=== PATIENT | female | born 1990 | race Hispanic/Latino ===

== ENCOUNTER 2017-09-17 11:16 | Observation (INO) | payer MEDICAID, OTHER | END 2017-09-17 13:58 | disposition home or self-care (01) | LOC: LDH 11:16 | PROVIDERS: ADMIT Obstetrics & Gynecology; ATTEND Obstetrics & Gynecology | DX: O26.893 Other specified pregnancy related conditions, third trimester (principal); R10.9 Unspecified abdominal pain; Z3A.37 37 weeks gestation of pregnancy | CPT/HCPCS: 76805; 76819; G0378 ×4 ==

== ENCOUNTER 2017-09-28 06:09 | Inpatient (IN) | payer MEDICAID ==
[~2017-09-28] VITALS: Ht 162.6 cm; Wt 108.9 kg
[2017-09-28 06:52] LABS: APPEARANCE,URINE TURBID (CLEAR); BILIRUBIN,URINE NEGATIVE (NEGATIVE); COLOR,URINE YELLOW (YELLOW); GLUCOSE, URINE (UA) NEGATIVE (NEGATIVE); KETONES,URINE NEGATIVE (NEGATIVE); LEUKOCYTE ESTERASE ,URINE NEGATIVE (NEGATIVE); NITRATE,URINE NEGATIVE (NEGATIVE); OCCULT BLOOD,URINE MODERATE (NEGATIVE); PROTEIN,URINE 100 (NEGATIVE); UROBILINOGEN,URINE 0.2 mg/dL (0.2-1.0)
[2017-09-28 06:57] LABS: BACTERIA,URINE Moderate /HPF (None Seen); SQUAMOUS EPITHELIAL CELL,UR Many /HPF (0-2)
[2017-09-28] MEDS ORDERED: AMPICILLIN 1GM+NS 50ML 50 ML IV SCH (07:15)
[2017-09-28] MEDS ORDERED: AMPICILLIN 2GM+NS 100ML 100 ML IV SCH ×2 (07:15→08:30)
[2017-09-28] MEDS ORDERED: AMPICILLIN 1 GM IV ONE (08:29)
[2017-09-28] MEDS ORDERED: [UNRECOGNIZED DRUG - OTHER] IV ONE (08:29)
[2017-09-28] MEDS ORDERED: BUTORPHANOL TARTRATE 2 MG/ML IVP PRN (09:15)
[2017-09-28] MEDS: LACTATED RINGERS 1000ML 1,000 ML IV PRN ×2 (09:32→16:31)
[2017-09-28 10:38] LABS: AMPHET/METH SCREEN,URINE NEGATIVE (NEGATIVE); BARBITURATE SCREEN, URINE NEGATIVE (NEGATIVE); BENZODIAZEPINES SCREEN,URINE NEGATIVE (NEGATIVE); CANNABINOID SCREEN,URINE NEGATIVE (NEGATIVE); COCAINE SCREEN,URINE NEGATIVE (NEGATIVE); OPIATE SCREEN,URINE NEGATIVE (NEGATIVE); PHENCYCLIDINE SCREEN,URINE NEGATIVE (NEGATIVE)
[2017-09-28] MEDS ORDERED: EPHEDRINE SULFATE 50 MG/ML AMPULE IVP PRN (11:45)
[2017-09-28] MEDS ORDERED: LACTATED RINGERS 500 ML 500 ML IV PRN (11:45)
[2017-09-28] MEDS ORDERED: NALOXONE HCL 0.4 MG/1 ML ML IV PRN (11:45)
[2017-09-28] MEDS ORDERED: OXYTOCIN 10 USP UNITS/ML 20 UNIT in LACTATED RINGERS 1000ML 1,000 ML IV SCH (11:45)
[2017-09-28] MEDS ORDERED: LACTATED RINGERS 1000ML 1,000 ML IV ONE ×2 (11:47→19:57)
[2017-09-28] MEDS ORDERED: OXYTOCIN 10 USP UNITS/ML ONE ×2 (11:47→19:57)
[2017-09-28 13:07] LABS: HEMATOCRIT 39.9 % (36-48); MEAN CORPUSCULAR HEMOGLOBIN 28.9 pg (27.0-33.0); MEAN CORPUSCULAR HGB CONC 33.9 g/dL (32.0-36.0); MEAN CORPUSCULAR VOLUME 85.2 fL (79-99); NUCLEATED RED BLOOD CELLS 0.1 % (0.0-0.19); PLATELET COUNT (AUTO) 224 K/uL (130-400); RED BLOOD CELL COUNT(AUTO) 4.69 MIL/uL (4.00-5.50); RED CELL DISTRIBUTION WIDTH 13.2 % (11.0-15.5); WHITE BLOOD COUNT (AUTO) 11.3 K/uL (4.8-10.8)
[2017-09-28] MEDS: AMPICILLIN 1GM+NS 50ML 50 ML IV SCH (16:31)
[2017-09-28] MEDS ORDERED: OXYTOCIN-LR 20 UNITS/1000 ML 1,000 ML IV SCH (19:30)
[2017-09-28] MEDS ORDERED: BENZOCAINE/LANOLIN/ALOE VERA 60 ML AEROSOL TP PRN (19:30)
[2017-09-28] MEDS ORDERED: LANOLIN 30GM OINTMENT TP PRN (19:30)
[2017-09-28] MEDS ORDERED: WITCH HAZEL 1 PAD TP PRN (19:30)
[2017-09-28] MEDS: IBUPROFEN 600 MG TABLET PO PRN (20:13)
[2017-09-28] MEDS: DOCUSATE SODIUM 100 MG CAP PO SCH (20:14)
[2017-09-28 21:47] VITALS: BP 148/82
[2017-09-28] MEDS: ACETAMINOPHEN 325 MG TAB PO PRN (23:22)
[2017-09-28 23:44] VITALS: BP 146/89
[2017-09-29] MEDS: AMPICILLIN 1GM+NS 50ML 50 ML IV SCH ×2 (00:30→04:30)
[2017-09-29 04:05] VITALS: BP 133/71
[2017-09-29 06:40] LABS: HEMATOCRIT 36.8 % (36-48); MEAN CORPUSCULAR HEMOGLOBIN 28.3 pg (27.0-33.0); MEAN CORPUSCULAR HGB CONC 33.6 g/dL (32.0-36.0); MEAN CORPUSCULAR VOLUME 84.5 fL (79-99); PLATELET COUNT (AUTO) 219 K/uL (130-400); RED BLOOD CELL COUNT(AUTO) 4.36 MIL/uL (4.00-5.50); RED CELL DISTRIBUTION WIDTH 13.2 % (11.0-15.5)
[2017-09-29 08:00] VITALS: BP 117/71
[2017-09-29] MEDS: DOCUSATE SODIUM 100 MG CAP PO SCH ×2 (08:09→20:45)
[2017-09-29] MEDS: IBUPROFEN 600 MG TABLET PO PRN ×3 (08:09→23:00)
[2017-09-29 11:55] VITALS: BP 140/87
[2017-09-29] MEDS: ACETAMINOPHEN 325 MG TAB PO PRN (13:07)
[2017-09-29 16:30] VITALS: BP 145/93
[2017-09-29 23:15] VITALS: BP 134/87
[2017-09-30 03:12] VITALS: BP 128/68
[2017-09-30 07:16] VITALS: BP 128/75
[2017-09-30] MEDS: IBUPROFEN 600 MG TABLET PO PRN ×2 (07:23→16:30)
[2017-09-30 08:25] LABS: HEPATITIS Bs ANTIGEN SCREEN P Negative (Negative)
[2017-09-30] MEDS: DOCUSATE SODIUM 100 MG CAP PO SCH (08:56)
[2017-09-30 11:13] VITALS: BP 136/86
[2017-09-30] MEDS: ACETAMINOPHEN 325 MG TAB PO PRN (11:28)
[2017-09-30 15:35] VITALS: BP 142/82
== END 2017-09-30 19:20 | disposition home or self-care (01) | DRG 560 ==
LOC: EDH 06:09 → LDH 06:10 → OBSVTOIN 06:10 → WSH 21:30
PROVIDERS: ADMIT Obstetrics & Gynecology; ATTEND Obstetrics & Gynecology
PROC: 10E0XZZ Delivery of Products of Conception, External Approach (ICD-10-PCS; principal; 2017-09-28)
PROC: 0UQGXZZ Repair Vagina, External Approach (ICD-10-PCS; 2017-09-28)
PROC: 30233S1 Transfusion of Nonautologous Globulin into Peripheral Vein, Percutaneous Approach (ICD-10-PCS; 2017-09-28)
PROC: 3E0R3BZ Introduction of Anesthetic Agent into Spinal Canal, Percutaneous Approach (ICD-10-PCS; 2017-09-28)
PROC: 00HU33Z Insertion of Infusion Device into Spinal Canal, Percutaneous Approach (ICD-10-PCS; 2017-09-28)
DX: O42.92 Full-term premature rupture of membranes, unspecified as to length of time between rupture and onset of labor (principal); Z68.41 Body mass index [BMI] 40.0-44.9, adult; O99.824 Streptococcus B carrier state complicating childbirth; E66.9 Obesity, unspecified; O99.214 Obesity complicating childbirth; O69.81X0 Labor and delivery complicated by cord around neck, without compression, not applicable or unspecified; O77.0 Labor and delivery complicated by meconium in amniotic fluid; Z37.0 Single live birth; Z3A.39 39 weeks gestation of pregnancy; O71.4 Obstetric high vaginal laceration alone
CPT/HCPCS: 36415; 80305; 81001; 83033; 85027; 86592; 86701; 86850; 86900; 86901; 87340; 87390; A4314; J0290; J0595; J2590; J2791; J7120

== ENCOUNTER → 2019-03-03 | Emergency (ER) | payer BC ==
[2019-03-03] VITALS (13 sets, daily range): BP systolic 117–144; BP diastolic 67–84
[~2019-03-03] MED LIST: BUPIVACAINE/PF 0.25% 30ML VIAL IJ ONE; CEFAZOLIN SODIUM 1 GM VIAL ONE; LISD50CA PO; MEPERIDINE-PF 25 MG/ML SYG ONE; MORPHINE SULFATE 4 MG/1ML SYG ONE; ONDANSETRON HCL 4 MG/2 ML VIAL ONE; SODIUM CHLORIDE 0.9% 1000ML 1,000 ML IV ONE
[2019-03-03 15:40] LABS: BASOPHILS % (AUTO) 0.5 % (0.0-5.0); EOSINOPHILS % (AUTO) 1.6 % (0.0-8.0); HEMATOCRIT 35.5 % (36-48); LYMPHOCYTES % (AUTO) 34.8 % (21.0-51.0); MEAN CORPUSCULAR HEMOGLOBIN 22.8 pg (27.0-33.0); MEAN CORPUSCULAR HGB CONC 31.7 g/dL (32.0-36.0); MEAN CORPUSCULAR VOLUME 71.9 fL (79-99); MONOCYTES % (AUTO) 7.3 % (3.0-13.0); NEUTROPHILS % (AUTO) 55.8 % (40.0-77.0); PLATELET COUNT (AUTO) 269 K/uL (130-400); RED BLOOD CELL COUNT(AUTO) 4.94 MIL/uL (4.00-5.50); RED CELL DISTRIBUTION WIDTH 14.8 % (11.0-15.5); WHITE BLOOD COUNT (AUTO) 5.7 K/uL (4.8-10.8)
[2019-03-03 15:51] LABS: CREATININE 0.6 mg/dL (0.5-1.5); POTASSIUM 4.1 mmol/L (3.5-5.1)
[2019-03-03 15:51] LABS: APPEARANCE,URINE Turbid (CLEAR); BILIRUBIN,URINE Negative (NEGATIVE); COLOR,URINE Yellow (YELLOW); GLUCOSE, URINE (UA) Negative (NEGATIVE); KETONES,URINE Negative (NEGATIVE); LEUKOCYTE ESTERASE ,URINE Large (NEGATIVE); NITRATE,URINE Negative (NEGATIVE); OCCULT BLOOD,URINE Moderate (NEGATIVE); PROTEIN,URINE Negative (NEGATIVE); UROBILINOGEN,URINE 0.2 mg/dL (0.2-1.0)
[2019-03-03 15:52] LABS: HCG,QUAL RESULT NEGATIVE (NEGATIVE)
[2019-03-03 15:53] LABS: INR 0.95 (0.85-1.15); PARTIAL THROMBOPLASTIN TIME 27.7 SEC (26.3-35.5)
[2019-03-03 15:56] LABS: ALBUMIN 3.5 g/dL (3.5-5.0); BILIRUBIN,TOTAL 0.1 mg/dL (0.2-1.0); TOTAL PROTEIN, SERUM 7.7 g/dL (6.0-8.3)
[2019-03-03 16:04] LABS: BACTERIA,URINE Few /HPF (None Seen); MUCUS,URINE Few LPF (None Seen)
== END ==
LOC: EDH 14:57
DX: N83.209 Unspecified ovarian cyst, unspecified side (principal)
CPT/HCPCS: 36415; 80053; 81001; 81025; 84702; 85025; 85610; 85730; 86850; 86900; 86901; 93005; 96374; 96375; 99285; A4351; A4930; C1769 ×2; G0168; J0690; J2175 ×2; J2270; J2405; J3490; J7030 ×2

== ENCOUNTER 2023-05-17 16:39 | Emergency (ER) | payer BC, OTHER ==
[~2023-05-17] VITALS: Ht 162.6 cm; Wt 113.4 kg
[~2023-05-17 16:39] MED LIST changes: -BUPIVACAINE/PF 0.25% 30ML VIAL IJ ONE; -CEFAZOLIN SODIUM 1 GM VIAL ONE; -MEPERIDINE-PF 25 MG/ML SYG ONE; -MORPHINE SULFATE 4 MG/1ML SYG ONE; -ONDANSETRON HCL 4 MG/2 ML VIAL ONE; -SODIUM CHLORIDE 0.9% 1000ML 1,000 ML IV ONE
[2023-05-17 18:59] VITALS: BP 136/83; PULSE 82; RESP 18; O2SAT 99
== END 2023-05-17 19:06 | disposition home or self-care (01) ==
LOC: EDH 16:39
DX: O26.893 Other specified pregnancy related conditions, third trimester (principal); R10.2 Pelvic and perineal pain; Z3A.32 32 weeks gestation of pregnancy; Z90.49 Acquired absence of other specified parts of digestive tract; W18.39XA Other fall on same level, initial encounter; Y93.89 Activity, other specified; Y92.89 Other specified places as the place of occurrence of the external cause; Y99.8 Other external cause status
CPT/HCPCS: 76805

== ENCOUNTER 2023-06-12 21:51 | Observation (INO) | payer OTHER ==
[~2023-06-12] VITALS: Ht 162.6 cm; Wt 117.9 kg
[2023-06-12 21:52] VITALS: BP 150/95; PULSE 93; RESP 20
[2023-06-12 22:20] LABS: APPEARANCE,URINE CLEAR (CLEAR); BILIRUBIN,URINE NEGATIVE (NEGATIVE); COLOR,URINE COLORLESS (YELLOW); GLUCOSE, URINE (UA) NEGATIVE (NEGATIVE); KETONES,URINE NEGATIVE (NEGATIVE); LEUKOCYTE ESTERASE ,URINE NEGATIVE Leu/uL (NEGATIVE); NITRATE,URINE NEGATIVE (NEGATIVE); OCCULT BLOOD,URINE NEGATIVE (NEGATIVE); PH,URINE 6.5 (5.0-8.0); PROTEIN,URINE NEGATIVE (NEGATIVE); UROBILINOGEN,URINE 0.2 mg/dL (0.2-1.0)
[2023-06-12 22:23] LABS: ADD UA MICROSCOPIC NO
[2023-06-12 22:27] LABS: AMPHET/METH SCREEN,URINE NEGATIVE (NEGATIVE); BARBITURATE SCREEN, URINE NEGATIVE (NEGATIVE); BENZODIAZEPINES SCREEN,URINE NEGATIVE (NEGATIVE); CANNABINOID SCREEN,URINE NEGATIVE (NEGATIVE); COCAINE SCREEN,URINE NEGATIVE (NEGATIVE); OPIATE SCREEN,URINE NEGATIVE (NEGATIVE); PHENCYCLIDINE SCREEN,URINE NEGATIVE (NEGATIVE)
[2023-06-13] MEDS ORDERED: LABETALOL 20MG VIAL IV PRN
[2023-06-13 01:31] LABS: BASOPHILS # (AUTO) 0.01 K/uL (0.00-0.20); BASOPHILS % (AUTO) 0.1 % (0.0-5.0); EOSINOPHILS # (AUTO) 0.09 K/uL (0.00-0.70); HEMATOCRIT 29.7 % (36-48); IMMATURE GRANULOCYTE ABSOLUTE 0.02 K/uL (0-1); LYMPHOCYTES # (AUTO) 2.3 K/uL (1.0-4.8); LYMPHOCYTES % (AUTO) 24.8 % (21.0-51.0); MEAN CORPUSCULAR HEMOGLOBIN 23.1 pg (27.0-33.0); MEAN CORPUSCULAR VOLUME 74.4 fL (79-99); MONOCYTES # (AUTO) 0.6 K/uL (0.1-1.0); MONOCYTES % (AUTO) 6.9 % (3.0-13.0); NEUTROPHILS # (AUTO) 6.2 K/uL (1.8-7.7); PLATELET COUNT (AUTO) 227 K/uL (130-400); RED BLOOD CELL COUNT(AUTO) 3.99 MIL/uL (4.00-5.50); RED CELL DISTRIBUTION WIDTH 14.2 % (11.0-15.5); WHITE BLOOD COUNT (AUTO) 9.2 K/uL (4.8-10.8)
[2023-06-13 01:42] LABS: CREATININE 0.5 mg/dL (0.5-1.5); POTASSIUM 3.9 mmol/L (3.5-5.1)
[2023-06-13 01:45] LABS: INR < 0.93 (0.85-1.15); PROTHROMBIN TIME 9.8 SEC (9.6-11.6)
[2023-06-13 01:46] LABS: PARTIAL THROMBOPLASTIN TIME 28.6 SEC (26.3-35.5)
[2023-06-13 01:47] LABS: ALBUMIN 2.1 g/dL (3.5-5.0); BILIRUBIN,TOTAL 0.2 mg/dL (0.2-1.0); TOTAL PROTEIN, SERUM 6.6 g/dL (6.0-8.3); URIC ACID 4.5 mg/dL (2.6-7.2)
[2023-06-13 02:48] LABS: FIBRINOGEN 550 mg/dL (180-350)
[2023-06-14 02:30] LABS: COLLECTION PERIOD,URINE 24 HR; CREATININE,SERUM FOR CRCL 0.5 mg/dL (0.6-1.3); TOTAL VOLUME 24HRS,URINE 3250 mL
[2023-06-14 02:46] LABS: TPROTEIN TIMED,URINE 14 mg/dL; TPROTEIN U,24HR CALC 455 mg/24HR (0-165)
== END 2023-06-14 07:46 | disposition home or self-care (01) ==
LOC: EDH 21:51 → LDH 22:04
PROVIDERS: ADMIT Obstetrics & Gynecology; ATTEND Obstetrics & Gynecology
DX: O36.8130 Decreased fetal movements, third trimester, not applicable or unspecified (principal); O16.3 Unspecified maternal hypertension, third trimester; O12.03 Gestational edema, third trimester; O26.893 Other specified pregnancy related conditions, third trimester; R10.30 Lower abdominal pain, unspecified; Z79.899 Other long term (current) drug therapy; Z3A.36 36 weeks gestation of pregnancy
CPT/HCPCS: 80305; 81003; 36415; 96360; 96361; 84550; 80053; 85025; 85384; 85610; 85730; 82948 ×5; 76819; 82575; 84156; G0378 ×32

== ENCOUNTER 2025-01-06 12:04 | Emergency (ER) | payer OTHER ==
[~2025-01-06] VITALS: Ht 162.6 cm; Wt 119.7 kg
[~2025-01-06 12:04] MED LIST changes: +FE F1TAB3 PO; +IBUP-2088 PO; -LISD50CA PO
[2025-01-06 12:05] VITALS: BP 143/97; PULSE 95; RESP 18; TEMP 98
[2025-01-06 12:36] LABS: HEMATOCRIT 41.4 % (36-48); MEAN CORPUSCULAR HEMOGLOBIN 27.6 pg (27.0-33.0); MEAN CORPUSCULAR HGB CONC 33.6 g/dL (32.0-36.0); MEAN CORPUSCULAR VOLUME 82.1 fL (79-99); RED BLOOD CELL COUNT(AUTO) 5.04 MIL/uL (4.00-5.50); RED CELL DISTRIBUTION WIDTH 13.3 % (11.0-15.5); WHITE BLOOD COUNT (AUTO) 10.1 K/uL (4.8-10.8)
[2025-01-06 12:45] LABS: CREATININE 0.5 mg/dL (0.5-1.0); POTASSIUM 3.9 mmol/L (3.5-5.1)
--- NOTE | 2025-01-06 12:49 | EKG ---
[facility] Test Date: 2025-01-06 Test Time: 12:46:52 Pat Name: RAUL GARSIA Department: [facility] Room: Gender: F Head Of Transport Logistics: [id number] : 1990 Requested By: ROCHELLE MCCOY Order Number: [id number] Reading MD: Nixon Crum Measurements Intervals [place]bell Rate: 81 P: 10 GA: 139 QRS: -8 QRSD: 81 T: 3 QT: 379 QTc: 441 Interpretive Statements Sinus rhythm Compared to ECG 03/03/2019 15:30:09 Left ventricular hypertrophy no longer present Electronically Signed On 01-07-2025 15:05:19 CDT by Nixon Crum Please click the below link to view image of tracing.
--- NOTE | 2025-01-06 13:39 | HMCIMG ---
CHEST 1VW HISTORY: Hypertension COMPARISON: None FINDINGS: A frontal projection of the chest was obtained. No acute pulmonary infiltrates is seen. The heart is normal in size. Prominent interstitial markings are seen. No evidence of aortic calcification is seen. IMPRESSION: 1. No acute pulmonary infiltrate is seen.
[2025-01-06] MEDS: 0.9%NACL 1000ML 1,000 ML IV ONE (14:03)
--- NOTE | 2025-01-06 14:06 | ERN ---
General Chief Complaint: Hypertension Stated Complaint: HYPERTENSION. HEADACHE Time Seen by MD: 12:08 Source: patient History of Present Illness Initial Comments PATIENT IS A 34-YEAR-OLD FEMALE COMING IN TO BE EVALUATED FOR ELEVATED BLOOD PRESSURE AND HEADACHE. PER PATIENT SHE HAS HAD THESE SYMPTOMS FOR GREATER THAN A MONTH. STATES HE WAS EVALUATED BY HER PCP STARTED ON MEDICATIONS FOR HYPERTENSION. SHE STATES HE HAS NOT SEEN HER PCP BUT IS HERE BECAUSE HER BLOOD PRESSURE MEDICATION ISN'T WORKING. SHE IS CURRENTLY TAKING AMLODIPINE. Allergies: Coded Allergies: No Known Drug Allergies (Unverified Allergy, Unknown, 06/21/23) Home Meds Reported Medications Ibuprofen (Motrin/Advil) 600 Mg Tab, 600 MG PO Q6H PRN for PAIN LEVEL 1 TO 5, #30 TAB 06/25/23 Fe Fumarate/Srinivas/E/FA/Multivit (Vitafol Caplet) 65 Mg-125 Mg-30 Unit-1 Mg Tablet, 1 EACH PO DAILY, TAB 06/24/23 Past Medical History Past Medical History: Hypertension, Other Medical History Other: GESTATIONAL DM,PRE ECLAMPSIA,ADHD Past Surgical History: Cholecystectomy, Other Surgical History Other: CYST FROM OVARY Female( History) : 4 Para: 1 Aborts: 2 ROS Dictation CONSTITUTIONAL: NO CHILLS, NO FEVER, NO WEAKNESS, NO DIAPHORESIS, NO MALAISE. HEAD/FACE: NO SIGNS OF TRAUMA. FACIAL DISCOMFORT EENT: NO EYE PAIN, NO BLURRED VISION, NO TEARING, NO DOUBLE VISION, NO EAR PAIN, NO EAR DISCHARGE, NO NOSE PAIN, NO NASAL CONGESTION, NO THROAT PAIN, NO THROAT SWELLING, NO MOUTH PAIN. RESPIRATORY: NO COUGH, NO ORTHOPNEA, NO SOB, NO STRIDOR, NO WHEEZING. CARDIOVASCULAR: NO CHEST PAIN, NO EDEMA, NO PALPITATIONS, NO SYNCOPE. GASTROINTESTINAL/ABDOMINAL: NO ABDOMINAL PAIN, NO CONSTIPATION, NO DIARRHEA, NO NAUSEA, NO VOMITING. GENITOURINARY: NO ABNORMAL DISCHARGE, NO DYSURIA, NO FREQUENT URINATION, NO HEMATURIA. NO COMPLAINTS OF PAIN IN THE GENITALS. MUSCULOSKELETAL: NO BACK PAIN, NO GOUT, NO JOINT PAIN, NO JOINT SWELLING, NO MUSCLE PAIN, NO MUSCLE STIFFNESS, NO NECK PAIN. INTEGUMENTARY: NO CHANGE IN COLOR, NO CHANGE IN HAIR/NAILS, NO DRYNESS, NO LESION, NO LUMPS, NO RASH. NEUROLOGICAL/PSYCH: NO ANXIETY, NOT DEPRESSED, NO EMOTIONAL PROBLEM, NO HEADACHE, NO NUMBNESS, NO PRE-EXISTING DEFICIT, NO HISTORY OF SEIZURES, NO TREMORS, NO WEAKNESS. HEMATOLOGIC/LYMPHATIC: NOT ANEMIC, NO HISTORY OF BLOOD CLOTS, NO APPARENT BLEEDING, NO BRUISING, GLANDS NOT SWOLLEN. ALL SYSTEMS NEGATIVE, EXCEPT NOTED. Physical Exam Physical Exam Dictation VITAL SIGNS: REVIEWED. GENERAL APPEARANCE: ALERT, ORIENTED X3, NO ACUTE DISTRESS, OBESE. HEAD AND FACE: NON-TRAUMATIC. EYES: PERRL, PINK CONJUNCTIVAS, EYELID NO TRAUMA, ANTERIOR CHAMBER CLEAR. EARS: PINNAS INTACT AND NO SIGNS OF TRAUMA OR ERYTHEMA. EAR CANALS CLEAR AND NO DISCHARGE. TMS NO ERYTHEMA. NOSE: NO DISCHARGE, NO BLEEDING, BILATERAL NASAL TURBINATE SWELLING. OROPHARYNX: MOUTH NORMAL, TEETH NO CARIES, TONGUE PINK. PHARYNX ERYTHEMA. TONSILS NO EXUDATES, NO ABSCESSES NOTED. MUCOUS MEMBRANE MOIST. NECK: SUPPLE, NON-TENDER, NO THYROMEGALY, NO MASSES, NO JVD, NO BRUITS. BREAST: DEFERRED. CHEST: NO TENDERNESS, NO CREPITUS, NO PARADOXICAL MOVEMENT, NO RETRACTIONS. LUNGS: CLEAR, WELL-VENTILATED, SYMMETRIC, NO RALES, NO WHEEZING, NO RHONCHI, NO STRIDOR, GOOD BREATH SOUNDS BILATERALLY. HEART: REGULAR RATE, REGULAR RHYTHM, NO MURMUR, NO GALLOPS. VASCULAR: NO PERIPHERAL EDEMA. ABDOMEN: SOFT, POSITIVE BOWEL SOUNDS, NONDISTENDED, NO GUARDING, NONTENDER, NO REBOUND, NO MASSES NO HEPATOMEGALY, NO SPLENOMEGALY, NO GOMEZ'S SIGN, NO HERNIAS. RECTAL: DEFERRED. GENITAL: DEFERRED. NEUROLOGICAL: NORMAL SPEECH, GROSS MOTOR FUNCTION INTACT, GROSS SENSORY FUNCTION INTACT. MUSCULOSKELETAL: NECK NONTENDER, FULL RANGE OF MOTION, BACK NONTENDER, FULL RANGE OF MOTION. EXTREMITIES: NONTENDER, FULL RANGE OF MOTION. SKIN: COLOR PINK, DRY, NO TURGOR, NO RASH, NO LACERATIONS, NO ABRASIONS, NO CONTUSIONS. LYMPHATICS: DEFERRED. Results Laboratory and Microbiology Lab and Micro Result Laboratory Tests Test 01/06/25 12:25 White Blood Count 10.1 K/uL (4.8-10.8) Red Blood Count 5.04 MIL/uL (4.00-5.50) Hemoglobin 13.9 g/dL (12.0-16.0) Hematocrit 41.4 % (36-48) Mean Corpuscular Volume 82.1 fL (79-99) Mean Corpuscular Hemoglobin 27.6 pg (27.0-33.0) Mean Corpuscular Hemoglobin Concent 33.6 g/dL (32.0-36.0) Red Cell Distribution Width 13.3 % (11.0-15.5) Platelet Count 342 K/uL (130-400) Mean Platelet Volume 8.9 fL (7.5-10.5) Nucleated Red Blood Cells 0.0 % (0.0-0.19) Sodium Level 134 mmol/L (136-145) L Potassium Level 3.9 mmol/L (3.5-5.1) Chloride Level 100 mmol/L (101-111) L Carbon Dioxide Level 22 mmol/L (21-32) Blood Urea Nitrogen 12 mg/dL (7-18) Creatinine 0.5 mg/dL (0.5-1.0) Glomerular Filtration Rate Calc 128 mL/min (>90) Random Glucose 110 mg/dL (70-105) H Total Calcium 8.7 mg/dL (8.5-10.1) Troponin I High Sensitivity 5 ng/L (4-50) Labs Reviewed?: Yes MDM MDM: DIFFERENTIAL DIAGNOSIS: SINUSITIS, HYPERTENSION UNCONTROLLED, RATIONALE: TESTS CONSIDERED AND ORDERED SECONDARY TO SHARED DECISION MAKING INCLUDE: PREVIOUS OUTSIDE RECORDS REVIEWED: OLD ER VISITS. RISK OF COMPLICATION AND/OR MORBIDITY OR MORTALITY OF PATIENT MANAGEMENT: NONE MEDICATIONS-PER MEDICATION RECONCILIATION NEED FOR HOSPITALIZATION: PATIENT DOES NOT MEET CRITERIA FOR HOSPITALIZATION. PATIENT IS A 34-YEAR-OLD FEMALE COMING IN TO BE EVALUATED FOR ELEVATED BLOOD PRESSURE. PATIENT HAS NOT FOLLOWED UP WITH THE PCP YET BUT STATES THAT THE MEDICATION ISN'T WORKING. LONG WITH THE SYMPTOMS PATIENT HAS BEEN HAVING LEFT FACIAL DISCOMFORT IN HIS MAXILLARY SINUS AREA PHYSICAL EXAM DID DISCLOSE BILATERAL NASAL TURBINATE SWELLING OROPHARYNGEAL ERYTHEMA WITH POSTNASAL DRAINAGE. PATIENT WILL BE DISCHARGED IN STABLE CONDITION WITH A DIAGNOSIS OF HYPERTENSION UNCONTROLLED WITH SINUSITIS. MEDICATION WILL BE PROVIDED FOR SYMPTOMATIC RELIEF WELL FOR BLOOD PRESSURE CONTROL. ED Course Orders Procedure Category Date Status Time Cbc Without LAB 01/06/25 Complete Differential 12:20 Basic Metabolic Panel LAB 01/06/25 Complete 12:20 Troponin I High LAB 01/06/25 Complete Sensitivity 12:20 12 Lead Ekg Tracing- EKG 01/06/25 Complete Technical 12:20 Chest 1vw RAD 01/06/25 Resulted 12:20 0.9%Nacl 1000ml (Ns PHA 01/06/25 Complete 1000ml) 13:00 Current Medications Medications (Trade) Dose Ordered Sig/Ronnie Route PRN Reason Start Time Stop Time Status Last Admin Dose Admin Sodium Chloride 1,000 ml @ 0 mls/hr ONCE ONCE IV 01/06/25 13:00 01/06/25 13:01 DC 01/06/25 14:03 Vital Signs Date Time Temp Pulse Resp B/P (MAP) Pulse Ox O2 Delivery O2 Flow Rate FiO2 01/06/25 12:05 98.1 95 18 143/97 97 0 DX & DISP Disposition: Discharge Departure Impression: Primary Impression: Hypertension, uncontrolled Additional Impression: Sinusitis Condition: Stable Scripts Amoxicillin/Potassium Clav (Amox Tr-K Clv 875-125 mg Tab) 875 Mg-125 Mg Tablet 1 TAB PO BID for 10 Days, #20 TAB 0 Refills Prov: ROCHELLE MCCOY MD 01/06/25 Fluticasone Propionate (Flonase Nasal [place]) 50 Mcg/Actuation [place] 2 SPRAY NS DAILY, #16 GM 0 Refills Prov: ROCHELLE MCCOY MD 01/06/25 Losartan Potassium (Losartan Potassium) 25 Mg Tablet 1 TAB PO DAILY for 30 Days, #30 TAB 0 Refills Prov: ROCHELLE MCCOY MD 01/06/25 Additional Instructions: FOLLOW-UP WITH PRIMARY CARE PROVIDER IN 1 TO 2 DAYS. TAKE MEDICATIONS DIRECTED HERE IN THE EMERGENCY ROOM. OKAY TO CONTINUE HOME MEDICATIONS UNLESS OTHERWISE DISCUSSED DURING YOUR VISIT IN THE EMERGENCY ROOM TODAY. RETURN TO YOUR NEAREST EMERGENCY ROOM IF SYMPTOMS WORSEN OR IF THERE IS NO IMPROVEMENT. CALL 911 IF YOU NEED IMMEDIATE ASSISTANCE. TAKE TYLENOL [id number] NEEDED AND IF NO CONTRAINDICATIONS ARE PRESENT. INCREASE ORAL HYDRATION. A WOUND CULTURE OR URINE CULTURE WAS ORDERED HERE IN THE EMERGENCY ROOM DEPARTMENT PLEASE FOLLOW-UP WITH PRIMARY CARE PROVIDER AND ADVISE THEM TO GET REPORTS FROM OUR FACILITY. IF YOU HAD ANY [place] WRAP/SPLINTS THAT WERE APPLIED HERE, PLEASE DO NOT REMOVE THEM UNTIL YOU SEE YOUR PRIMARY CARE OR SPECIALTY. REFERRALS: Referrals: FRANK BUSH MD (PCP) Time of Disposition: 14:09 ROCHELLE MCCOY MD Jan 06, 2025 14:06
[2025-01-06] MEDS ORDERED: FLUT16H NS (14:09)
[2025-01-06] MEDS ORDERED: LOSA25TA41 PO (14:09)
[2025-01-06] MEDS ORDERED: AMOX1TAB16 PO (14:09)
== END 2025-01-06 14:50 | disposition home or self-care (01) ==
LOC: EDH 12:04
DX: I10 Essential (primary) hypertension (principal); J32.9 Chronic sinusitis, unspecified; Z79.899 Other long term (current) drug therapy; Z87.59 Personal history of other complications of pregnancy, childbirth and the puerperium; Z90.49 Acquired absence of other specified parts of digestive tract
CPT/HCPCS: 99285; 96360; 71045; 84484; 80048; 85027; 36415; 93005; J7030